=== PATIENT | female | born 1955 | race Caucasian/White ===

== ENCOUNTER 2017-05-12 21:28 | Emergency (ER) | payer BC, MEDICAID ==
--- NOTE | 2017-05-12 22:01 | ED Physician Chart ---
Chief Complaint/HPI - Patient Information Date Seen:: 05/12/17 Time Seen:: 21:49 Chief Complaint:: sob History of Present Illness:: pt was brought in by police after was charged ..has now been released from police custody. pt had complained of sob and ?chest discomfort earlier..but now is saying taht it was her asthma that had flared up. she refuses to shake my hand saying she doesnt do that when she is sick. she is very angry w me from the moment I meet her though I have no idea why this could be and does not seem based on any rational basis. 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 she refuses to answer most questions and is giving me repeated run aroun avoidant answers. she seems to be denying any recent illness so I am unclear what she meant about being sick. she is denying cp now and pts o2 sat is 99pct on ra. she is speaking in full sentences w no pressured speech. no kirby. on my 2nd attempt to speak w this pt she is yelling at me. Again I have asked her if she wants my help to please try to communicate as we need information about what her needs are. she is saying she doesnt want any med that will raise her bp as she knows she has htn and doesnt want a cva. she has no neuro defecits at present. I do not percieve that albuterol will improve her mood or respiratory status. pt wants us to put her on emergency o2 despite that she has v good o2 sat and no wheezing and is literally yelling at me nonstop and w no dyspnea evident. ems crew, rn's and myself feel that pt is using her percieved medical condition to avoid police encounter (reportedly she has 4 warrants) Historian:: Patient Review of Systems - Review of Systems General/Constitutional: No fever, No chills, No weight loss, No weakness, No diaphoresis, No edema, No loss of appetite Skin: No skin lesions, No rash, No bruising Head: No headache, No light-headedness Eyes: No loss of vision, No pain, No diplopia ENT: No earache, No nasal drainage, No sore throat, No tinnitus Neck: No neck pain, No swelling, No thyromegaly, No stiffness, No mass noted Cardio Vascular: No chest pain, No palpitations, No PND, No orthopnea, No edema Pulmonary: No SOB, No cough, No sputum, No wheezing GI: No nausea, No vomiting, No diarrhea, No pain, No melena, No hematochezia, No constipation, No hematemesis G/U: No dysuria, No frequency, No hematuria Musculoskeletal: No bone or joint pain, No back pain, No muscle pain Endocrine: No polyuria, No polydipsia Psychiatric: No prior psych history, No depression, No anxiety, No suicidal ideation, Other (agitation) Hematopoietic: No bruising, No lymphadenopathy Allergic/Immuno: No urticaria, No angioedema Neurological: No syncope, No focal symptoms, No weakness, No paresthesia, No headache, No seizure, No dizziness, No confusion, No vertigo Past Medical History - Past Medical History Past Medical History: HTN, Asthma/COPD, Thyroid disorder, Other (breast ca on left...txd w lumpectomy and rad tx 2009) Social History: Smoker Medication: Reviewed Family Medical History - Family Member Mother History Unknown: Yes Ethnicity: Non- Living Status: Still Living Physical Exam - Physical Examination General/Constitutional: Awake, Well-developed, well-nourished, Alert, No distress, GCS 15, Non-toxic appearing, Ambulatory Head: Atraumatic Eyes: Lids, conjuctiva normal, PERRL, EOMI Skin: Nl inspection, No rash, No skin lesions, No ecchymosis, Well hydrated, No lymphadenopathy ENMT: External ears, nose nl, Nasal exam nl, Lips, teeth, gums nl Neck: Nontender, Full ROM w/o pain, No JVD, No nuchal rigidity, No bruit, No mass, No stridor Respiratory: Nl effort/Exclusion, Clear to Auscultation, No Wheeze/Rhonchi/Rales Other Respiratory comments:: lungs clear. no dyspnea. no wheeze. no leg edema. Cardio Vascular: RRR, No murmur, gallop, rubs, NL S1 S2 GI: No tenderness/rebounding/guarding, No organomegaly, No hernia, Normal BS's, Nondistended, No mass/bruits, No McBurney tenderness : No CVA tenderness Extremities: No tenderness or effusion, Full ROM, normal strength in all extremities, No edema, Normal digits & nails Neuro/Psych: Alert/oriented, DTR's symmetric, Normal sensory exam, Normal motor strength, Judgement/insight normal, Mood normal, Normal gait, No focal deficits Other Neuro/Psych comments:: oppositional hyperactive and extremely difficult behavior. however pt is awake alert and aware. fully oriented. pt admits she is being very difficult w me ( says this was brought on due to her stressfull evening) and yet continues same behavior. Misc: normal gait, Normal back, No paraspinal tenderness Labs/Radiology/EKG Results - EKG Interpretations EKG Time:: 22:20 Rate & Rhythm: nsr 92 Roma: 75 Intervals: nrml st/t waves ED Septic Shock - . Is Septic Shock (SBP<90, OR Lactate>4 mmol\L) present?: No Reassessment (Disposition) - Reassessment Reassessment:: pt ecg ok. o2 given. she now wants a neb tx or is saying were not txing her properly. still yelling w lungs clear and no obv dypnea and sao2 99pct. pts bp now 200/90...talked to pt in depth and she admits she is not on her htn med for some time. explained about htn tx need to tx [facility]. attempted to educate pt however pt is so angry it interferes w her basic ability to communicate. she frequently throws random insults at everybody. I have tried very hard to explain the [facility] risks of untxd htn. (11;47p) rechk bp 158/87. pt w no resp distress. rx toprol xl 100mg/d (no10)...pt advised to see pmd in next few days for bp rechk and asthma rechk. Reassessment Condition:: Improved - Diagnosis Diagnosis:: 1 asthma 2 poorly ctrld htn - noncompliant w bp med - Aftercare/Follow up Instructions Aftercare/Follow-Up Instructions:: Counseled pt regarding lab results/diagnosis & need follow up - Patient Disposition Discharge/Transfer:: Home Condition at Disposition:: Improved ED Discharge Plan - Patient Disposition Admit/Discharge/Transfer: PT DISCHARGED HOME Condition at Disposition: Stable Instructions: Asthma, Adult
== END 2017-05-13 | disposition home or self-care (01) ==
LOC: ER 21:28
DX: J45.909 Unspecified asthma, uncomplicated (principal); J44.9 Chronic obstructive pulmonary disease, unspecified; I10 Essential (primary) hypertension; E07.9 Disorder of thyroid, unspecified; F17.200 Nicotine dependence, unspecified, uncomplicated; Z88.2 Allergy status to sulfonamides; Z88.8 Allergy status to other drugs, medicaments and biological substances
CPT/HCPCS: 99283; 93005; Z7610; Z7502